=== PATIENT | female | born 1990 ===

== ENCOUNTER 2025-01-17 18:59 | Emergency (ER) | payer SELFPAY ==
[2025-01-17 19:00] VITALS: BP 138/86; PULSE 77; RESP 15; TEMP 36.7; O2SAT 100
--- OUTSIDE RECORDS SUMMARY | 2025-01-17 19:01 | XMS_ITS | Data Portability ---
[facility] Address [address] [place] [address] Assessment No assessment recorded. Plan of Treatment Reminders Order Date Submit Date Provider Last Modified By Organization Details Last Modified Time Details Appointments None recorded. Lab SARS CoV 2 RNA (COVID-19), QL, coal cager-PCR, respiratory specimen - [place] Monday 12:45 [address] [place] [address] (Lab), [address] [place], [address], 0 09:34:02 SARS CoV 2 RNA (COVID-19), QL, coal cager-PCR, respiratory specimen - , SOB,headach es,sorethro at, exposed to pos COVID person. 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 Procedures None recorded. Surgeries None recorded. Imaging None recorded. Medication Orders None recorded. Patient TargetsNo targets recorded. Patient Instructions Encounter Date Encounter Id Patient Instructions Last Modified By Organization Details Last Modified Time 2014 [id number] Administered Tdap vaccine. [email or web address] Not available 2014 18:27:27 01/28/2020 [id number] Reviewed the following recommendations: -Stay home and separate from others as much as possible. -Monitor your symptoms and seek medical attention for trouble breathing, persistent chest pain, confusion, or bluish lips or face. -Wear a mask if you must be around other people. -Wash your hands often for 20 seconds with soap and water and clean high-touch surfaces daily -You may discontinue home isolation if your symptoms are improving, it has been 7 days since symptoms started, and you have been fever free for at least 3 days. [email or web address] Not available 01/28/2020 10:52:29 05/13/2020 [id number] Reviewed the following recommendations: -Stay home and separate from others as much as possible. -Monitor your symptoms and seek medical attention for trouble breathing, persistent chest pain, confusion, or bluish lips or face. -Wear a mask if you must be around other people. -Wash your hands often for 20 seconds with soap and water and clean high-touch surfaces daily -You may discontinue home isolation if your symptoms are improving and it has been 10 days since symptoms started. [email or web address] Not available 05/13/2020 10:33:39 06/25/2020 [id number] things to do if you've been exposed to covid-19 [email or web address] Not available 06/25/2020 10:10:14 Reason for Referral None Reported. Results Created Date Observation Date Name Description Value Unit Range Abnormal Flag Note LastModifiedBy Organization Detail LastModifiedTime 01/28/2001/28/2020 SARS CoV 2 RNA (COVI D-19) , QL, coal cager-P CR, respi rator y speci men sars - cov - 2 PCR NEGATI VE mL Not Available [facility] (Lab) [address] [facility], [place], [address], 02/01/2020 14:03:53 01/28/20 20 01/28/2020 SARS CoV 2 RNA (COVI D-19) , QL, coal cager-P CR, respi rator y speci men covidcom1 This assay is desig emily to detec t the RdRp and N genes of SARS- CoV-2 using nucle ic acid ampli ficat ion. A negat darleen resul t does not precl ude the possi bilit y of 2019- nCoV infec tion since the adequ acy of sampl e colle ction and/o r low viral burde n may resul t in the prese nce of viral nucle ic acids level s below the shiela tical sensi tivit y of this test metho d. Not Available [facility] (Lab) [address] [place], [address], 02/01/2020 14:03:53 01/28/20 20 01/28/2020 SARS CoV 2 RNA (COVI D-19) , QL, coal cager-P CR, respi rator y speci men covidcom2 Posit darleen resul ts are indic ative of the prese nce of SARS- CoV-2 RNA and do not rule out bacte rial infec tion or co-in fecti on with other virus es. Not Available [facility] (Lab) [address] [facility], [place], [address], 02/01/2020 14:03:53 01/28/20 20 01/28/2020 SARS CoV 2 RNA (COVI D-19) , QL, coal cager-P CR, respi rator y speci men covidcom3 Test resul ts shoul d be used along with other clini js obser vatio ns, patie nt histo ry, epide miolo gical infor matio n and labor atory data in makin g the diagn osis. Not Available [facility] (Lab) [address] [facility], [place], [address], 02/01/2020 14:03:53 01/28/20 20 01/28/2020 SARS CoV 2 RNA (COVI D-19) , QL, coal cager-P CR, respi rator y speci men covidcom4 This test has recei [place] FDA Emerg ency Use Autho rizat ion and has been verif ied by [facility] . This test is only autho rized for the durat ion of the decla ratio n and the circu mstan guy that exist to deanna ramirez the autho rizat ion of the emerg ency use of in vitro diagn ostic tests for the detec tion of SARS- CoV-2 virus and/o r diagn osis of COVID -19 infec tion under secti on 564 (b) (1) of the Act. 11 U.S.C . 360bb b-3 (b) (1), unles s the autho rizat ion is termi nated or revok ed soone r. Not Available [facility] (Lab) [address] [place], [address], 02/01/2020 14:03:53 01/28/20 20 01/28/2020 SARS CoV 2 RNA (COVI D-19) , QL, coal cager-P CR, respi rator y speci men covidcom5 [facility] is certi fied under CLIA- 88 as quali fied to perfo rm high compl exity testi ng. This testi ng was [facility]fo [facility]med [facility] [place] [place] [address] (CLIA Licen se #[id number], CAP #[id number], AU-ID #[id number]). Not Available [facility] (Lab) [address] [place], [address], 02/01/2020 14:03:53 01/28/20 20 01/28/2020 SARS CoV 2 RNA (COVI D-19) , QL, coal cager-P CR, respi rator y speci men covidcom6 Facts heet for healt hcare provi ders: https ://ww w.fda .gov/ media /1362 56/do wnloa d Facts heet for patie nts: https ://ww w.fda .gov/ media /1362 57/do wnloa d Not Available [facility] (Lab) [address] [place], [address], 02/01/2020 14:03:53 05/13/20 20 05/13/2020 SARS CoV 2 RNA (COVI D-19) , QL, coal cager-P CR, respi rator y speci men sars - cov - 2 PCR NEGATI VE mL Not Available [facility] (Lab) [address] [place], [address], 05/14/2020 20:26:46 05/13/20 20 05/13/2020 SARS CoV 2 RNA (COVI D-19) , QL, coal cager-P CR, respi rator y speci men covidcom1 COMME NTS: This assay is desig emily to detec t the RdRp and N genes of SARS- CoV-2 using nucle ic acid ampli ficat ion. A negat darleen resul t does not precl ude the possi bilit y of 2019- nCoV infec tion since the adequ acy of sampl e colle ction and/o r low viral burde n may resul t in the prese nce of viral nucle ic acids level s below the shiela tical sensi tivit y of this test metho d. Not Available [facility] (Lab) [address] [facility], [place], [address], 05/14/2020 20:26:46 05/13/20 20 05/13/2020 SARS CoV 2 RNA (COVI D-19) , QL, coal cager-P CR, respi rator y speci men covidcom2 Posit darleen resul ts are indic ative of the prese nce of SARS- CoV-2 RNA and do not rule out bacte rial infec tion or co-in fecti on with other virus es. Not Available [facility] (Lab) [address] [place], [address], 05/14/2020 20:26:46 05/13/20 20 05/13/2020 SARS CoV 2 RNA (COVI D-19) , QL, coal cager-P CR, respi rator y speci men covidcom3 Test resul ts shoul d be used along with other clini js obser vatio ns, patie nt histo ry, epide miolo gical infor matio n and labor atory data in issa dooley the diagn osis. Not Available [facility] (Lab) [address] [place], [address], 05/14/2020 20:26:46 05/13/20 20 05/13/2020 SARS CoV 2 RNA (COVI D-19) , QL, coal cager-P CR, respi rator y speci men covidcom4 This test has recei [place] FDA Emerg ency Use Autho rizat ion and has been verif ied by [facility] . This test is only autho rized for the durat ion of the decla ratio n and the circu mstan guy that exist to justi fy the autho rizat ion of the emerg ency use of in vitro diagn ostic tests for the detec tion of SARS- CoV-2 virus and/o r diagn osis of COVID -19 infec tion under secti on 564 (b) (1) of the Act. 11 U.S.C . 360bb b-3 (b) (1), unles s the autho rizat ion is termi nated or revok ed soone r. Not Available [facility] (Lab) [address] [facility], [place], [address], 05/14/2020 20:26:46 05/13/20 20 05/13/2020 SARS CoV 2 RNA (COVI D-19) , QL, coal cager-P CR, respi rator y speci men covidcom5 [facility] is certi fied under CLIA- 88 as quali fied to perfo rm high compl exity testi ng. This testi ng was perfo rmed in the [facility] [place] [address] (CLIA Licen se #[id number], CAP #[id number], AU-ID #[id number]). Not Available [facility] (Lab) [address] [place], [address], 05/14/2020 20:26:46 05/13/20 20 05/13/2020 SARS CoV 2 RNA (COVI D-19) , QL, coal cager-P CR, respi rator y speci men covidcom6 Facts heet for healt hcare provi ders: https ://ww w.fda .gov/ media /1362 56/do wnloa d Facts heet for patie nts: https ://ww Newsbound.fda .gov/ media /1361 57/do wnloa d Not Available [facility] ([facility]) [address] [place], [address], 05/14/2020 20:26:46 Result Notes None recorded. Problems No Known Problems Medical Equipment None Reported. Allergies No known drug allergies Medications Not known to be on any medication Vitals Date Recorded Oxygen saturation Oxygen saturation in Arterial blood by Pulse oximetry Body weight Heart rate Body mass index (BMI) Body height Body temperature Systolic blood pressure Diastolic blood pressure Provider Name and Address Organization Details Last Updated DateTime 5 99 % 99 % 49892.1 1053 g 82 /min 27.3 kg/m2 167.64 cm 98.2 [degF] 110 mm[Hg] 70 mm[Hg] Mima Keating [facility] 5 18:17:56 Social History Question Answer Notes LastModified by Organizat ion Details LastModified Time Tobacco Smoking Status Never Smoker Mima Keating null, [facility] 2014 18:17:56 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 Mental Status None recorded. Family History Nothing Reported. Medical History No medical history recorded. Gynecological HistoryNo gynecological history recorded. Obstetrics History GPAL:G 0 P 0 0 0 0 Immunizations Vaccine Type Date Status Note Provider Nam e and Address Organization Details Recorded Time Tdap 10/13/2014 completed Not Available [facility] 10/19/2019 02:39:15 Past Encounters Encounter ID Performer Location Encounter Start Date Encounter Closed Date Diagnosis/Indication Diagnosis SNOMED-CT Code Diagnosis ICD10 Code Diagnosis Note [id number] Eun Blanton MD [facility] [address] [place] [address] 2014 18:01:51 10/16/2014 03:50:16 Active or passive immunization [id number] DIDIER Good NP Phong carson [address] [place] [address] 01/28/2020 10:20:56 01/29/2020 08:28:16 Viral syndrome 689953337 B34.9 D/w pt the current pandemic of COVID-19 and call for social isolation in order to blunt the curve and minimize risk and spread. Encouraged patient and family to take restrictio ns seriously. They have verbalized understand ing of such. [id number] DIDIER Good NP Ph[address] [place] [address] 05/13/2020 09:11:56 05/14/2020 11:17:39 Suspected COVID-19 187796196 Z03.818 D/w pt the current pandemic of COVID-19 and call for social isolation in order to blunt the curve and minimize risk and spread. Encouraged patient and family to take restrictio ns seriously. They have verbalized understand ing of such. Viral syndrome 883180017 B34.9 D/w pt the current pandemic of COVID-19 and call for social isolation in order to blunt the curve and minimize risk and spread. Encouraged patient and family to take restrictio ns seriously. They have verbalized understand ing of such. [id number] Kavita Lai, THERMAL MOLDER-CLARIBEL [address]on [address] [place] [address] 06/25/2020 09:11:52 06/26/2020 09:03:17 Exposure to SARS-CoV-2 431937199 Z20.828 Health Concerns Section Related Observation LastModified by Organization Detai ls LastModified Time None Recorded Concern Status LastModified by Organization Details LastModified Time None Recorded Advance Directives Directive None Recorded Payers Encounter Date Sequence Insurance Name Policy Number Policy Del Cid Covered Member ID Del Cid Member ID Guarantor Name 01/28/2020 1 *SELF PAY* Ra oma Schultz 05/13/2020 1 *SELF PAY* Ra oma Schultz 06/25/2020 1 [facility] [id number] [place] Schultz [id number] [place] Schultz Notes Date Note Type Note Provider Name and Address Organization Details Recorded Time 2014 text/html Visit for Tdap. Marty Mera PA-C Attn: Accounting,[address] [place], [address], [facility] 12/16/2014 13:42:53 01/28/2020 text/html COVID ScreeningReported bypatient.Onset/Durati on of fever:fever Associated Symptoms:cough;shortne ss of breath(one week ago); no cough Context/Exposure:no travelCOVID-19 SymptomsReported bypatient.COVID-19 Signs and Symptomscough same Contacts and Exposureclose contact with a confirmed or suspected case of COVID-19; healthcare-associated exposure; patient is healthcare personnel Onset/Timing:date of symptoms onset: (one week ago) Associated Symptoms:fatigue;fever ;sore throat;vomiting;nausea 29 yo female ,spoke via phone with C/O sorethroat X one week, vomiting, chillis X last night, headache X three days , healthcare worker DIDIER Good NP Attn: Accounting,[address] [place], [address], [facility] 01/28/2020 10:52:55 05/13/2020 text/html COVID ScreeningReported bypatient.Onset/Durati on of fever:no fever Associated Symptoms:shortness of breath; no cough; no shortness of breathCOVID-19 Symptoms January 2020Reported bypatient.COVID-19 Signs and Symptomsshortness of breath same; headache same; sore throat same Contacts and Exposureclose contact with a confirmed or suspected case of COVID-19 29 yo female ,spoke via phone with C/O , SOB,headaches,sorethro at, exposed to pos COVID person. DIDIER Good NP Attn: Accounting,[address] [place], [address], [facility] 05/13/2020 10:34:10 06/25/2020 text/html COVID-19 Symptom s January 2020Reported bypatient.Contacts and Exposureclose contact with a confirmed or suspected case of COVID-19; close proximity with person with COVID-19 ASHLEY Leon Attn: Accounting[address] [place], [address], [facility] 06/25/2020 10:11:05 OBGyn Episode No OBEpisode recorded.
--- NOTE | 2025-01-17 19:20 | PC.NURSE ---
this RN assists pt to get into psych scrubs and asks patient to put belongings into a belonging bag. pt refuses and before this RN could explain why, patient begins going toward ER front door to leave. this RN immediately asks furnace and wash equipment operator to call security and Roger KELLEY because patient reports SI. at this time pt is with security and PD in ED parking lot.
[2025-01-17 20:04] LABS: BEDSIDEPREGUCG Negative (Negative)
[2025-01-17 20:05] LABS: Basophils Absolute Auto 0.1 K/mm3 (0.0-0.1); Basophils Percent Auto 0.8 % (0.2-1.2); Eosinophils Absolute Auto 0.1 K/mm3 (0-0.3); Eosinophils Percent Auto 1.2 % (0-4.4); Hematocrit 42.6 % (37.0-47.0); Immature Granulocyte Absolute 0.02 K/mm3 (0.00-0.031); Immature Granulocyte Percent A 0.3 % (0-0.5); Lymphocytes Absolute Auto 2.88 K/mm3 (0.9-3.2); Lymphocytes Percent Auto 36.8 % (18.3-44.2); Mean Corpuscular HGB Conc 32.9 g/dl (32-36); Mean Corpuscular Hemoglobin 28.3 pg (26-34); Mean Corpuscular Volume 86.2 fl (80-100); Mean Platelet Volume 10.3 fl (7.4-10.4); Monocytes Absolute Auto 0.4 K/mm3 (0.1-0.6); Monocytes Percent Auto 5.2 % (2.6-8.5); Neutrophils Absolute Auto 4.4 K/mm3 (1.3-6.7); Neutrophils Percent Auto 55.7 % (45.5-73.1); Platelet Count Result 247 k/mm3 (150-375); Red Blood Count 4.94 M/mm3 (4.2-5.4); Red Cell Distribution Width 13.2 % (11.5-14.5); White Blood Count 7.8 K/mm3 (4.5-10.0)
[2025-01-17 20:11] LABS: Add Urine Microscopic? YES; Appearance Urine Clear (Clear); Bacteria Urine 3+ /hpf; Bilirubin Urine Negative (Negative); Blood Urine Negative (Negative); Color Urine Yellow (Yellow); Glucose Urine UA Negative (Negative); Ketones Urine Negative (Negative); Leukocyte Esterase Ur Negative LEU/UL (Negative); Nitrate Urine Positive (Negative); Non Pathogenic Casts 0-2; Protein Urine Negative (Negative); Specific Grav Ur 1.018 (1.001-1.035); Squamous Epithelial Cell Urine Few /hpf (Few); Urobilinogen Urine 0.2 mg/dL (<2.0); WBC Urine 0-5 /hpf (0-3); pH Urine 5.5 (5.0-9.0)
--- NOTE | 2025-01-17 20:11 | ED_ITS ---
HPI - General Adult General Chief complaint: Psychiatric Symptoms Stated complaint: SI Time Seen by Provider: 01/17/25 19:13 History of Present Illness HPI narrative: Patient is a 34-year-old female who presents the emergency department this evening for evaluation for suicidal ideations. Patient is brought in by PD who states that she has a told the multiple times that she wanted to kill herself. Patient herself admits that she may have made some statements but is adamant that she never intended to hurt herself and has never attempted to do such thing in the past. Denies any active suicidal or homicidal ideations. Patient states that the PD came in and immediately found an empty bottle of lamotrigine which is 1 of the medications she takes and she ran out of. They are medically started to assume things such as her taking her medications to overdose when she didn't even have medications to overdose on. Patient states that this upset her. Patient states that she has been struggling with depression and does see psychiatrist. Has good resources. Patient is, cooperative during my assessment, his not appear to be under the influence of any drugs or alcohol and no evidence of acute psychosis. Related Data Allergies Allergy/AdvReac Type Severity Reaction Status Date / Time No Known Allergies Allergy Verified 01/17/25 19:07 Review of Systems 2 Review of Systems: All systems are reviewed and are negative unless stated otherwise in the HPI. Exam 2 Narrative: General: Alert, awake, afebrile, in no acute distress. HEENT: PERRL, no rhinorrhea, no post nasal drip, oropharynx clear. Neck: Trachea midline, no JVD, no lymphadenopathy. Cardiovascular: Regular rate and rhythm, no murmurs, rubs or gallops, no peripheral edema. Respiratory: Clear to auscultation bilaterally, no tachypnea, no wheezing, no rhonchi, no rubs, no respiratory distress. Abdomen: Soft, nontender, nondistended, no rebound, no guarding, no peritoneal signs. Musculoskeletal: No joint swelling or deformity, normal muscle tone. Skin: No rashes or petechia, no signs of infection. Psychiatric: Alert and oriented, normal behavior and judgment for situation, c jose, cooperative, non combative. Neurological: Alert and oriented to person, place, and time. Follows all commands. No focal deficits, speech is clear and fluent. Course Vital Signs Vital signs: Vital Signs Temperature 98.0 F 01/17/25 19:00 Pulse Rate 77 01/17/25 19:00 Respiratory Rate 15 01/17/25 19:00 Blood Pressure 138/86 01/17/25 19:00 Pulse Oximetry 100 01/17/25 19:00 Oxygen Delivery Room Air 01/17/25 19:00 Temperature 98.0 F 01/17/25 19:00 Pulse Rate 77 01/17/25 19:00 Respiratory Rate 15 01/17/25 19:00 Blood Pressure 138/86 01/17/25 19:00 Pulse Oximetry 100 01/17/25 19:00 Oxygen Delivery Room Air 01/17/25 19:00 Medical Decision Making MDM Narrative Medical decision making narrative: The patient was evaluated by myself in the emergency department. History is obtained from patient who is an independent historian and physical exam was performed. External medical records were reviewed at this time. IV was established and pertinent tests were ordered. Laboratory results obtained revealing mild transaminitis with an AST of 42 and ALT of 84 otherwise unremarkable. Urinalysis revealed urinary tract infection. Urine drug screen negative. Differential diagnosis considerations include acute psychosis, depression, anxiety. Comorbidities impacting this visit include none. I have evaluated and discussed social determinants of health with the patient that could potentially impact subsequent diagnosis and treatment plans. Patient was seen and evaluated by our crisis team who believe the patient is not actively suicidal or homicidal, patient has a good support system and was very reasonable with them during her assessment. They do not feel any need to involuntary hospitalized for which I am in agreement with. On repeat assessment of the patient, reevaluation revealed that the patient is doing well and is in no acute distress. Patient symptoms have improved since she arrived to our emergency department. Repeat vital signs were all reviewed and noted to be stable. Differential diagnosis and treatment plan were discussed with the patient at bedside. Patient agrees with discussion and after shared medical decision making agrees with discharge. All questions were answered to the patient's satisfaction. Patient will follow up with her therapist/psychiatrist in 3-5 days. Script for cephalexin was sent to patient's pharmacy to take as prescribed for her urinary tract infection. Patient was provided with strict return precautions and instructed to return to the emergency department if any new or worsening symptoms develop. The patient was discharged in stable condition. Vital Signs Vital Signs: Vital Signs Temperature 98.0 F 01/17/25 19:00 Pulse Rate 77 01/17/25 19:00 Respiratory Rate 15 01/17/25 19:00 Blood Pressure 138/86 01/17/25 19:00 Pulse Oximetry 100 01/17/25 19:00 Oxygen Delivery Room Air 01/17/25 19:00 Temperature 98.0 F 01/17/25 19:00 Pulse Rate 77 01/17/25 19:00 Respiratory Rate 15 01/17/25 19:00 Blood Pressure 138/86 01/17/25 19:00 Pulse Oximetry 100 01/17/25 19:00 Oxygen Delivery Room Air 01/17/25 19:00 Lab Data 01/17/25 19:57 01/17/25 19:57 Labs: Lab Results 01/17/25 01/17/25 Range/Units 19:57 20:02 WBC 7.8 (4.5-10.0) K/mm3 RBC 4.94 (4.2-5.4) M/mm3 Hgb 14.0 (12.0-15.0) g/dL Hct 42.6 (37.0-47.0) % MCV 86.2 (80-100) fl MCH 28.3 (26-34) pg MCHC 32.9 (32-36) g/dl RDW 13.2 (11.5-14.5) % Plt Count 247 (150-375) k/mm3 MPV 10.3 (7.4-10.4) fl Immature Gran % (Auto) 0.3 (0-0.5) % Neut % (Auto) 55.7 (45.5-73.1) % Lymph % (Auto) 36.8 (18.3-44.2) % [place] % (Auto) 5.2 (2.6-8.5) % Eos % (Auto) 1.2 (0-4.4) % Baso % (Auto) 0.8 (0.2-1.2) % Lymph # (Auto) 2.88 (0.9-3.2) K/mm3 [place] # (Auto) 0.4 (0.1-0.6) K/mm3 Eos # (Auto) 0.1 (0-0.3) K/mm3 Baso # (Auto) 0.1 (0.0-0.1) K/mm3 Abs Immat Gran (auto) 0.02 (0.00-0.031) K/mm3 Absolute Neuts (auto) 4.4 (1.3-6.7) K/mm3 Absolute Nucleated RBC 0.000 (0.0-0.012) K/mm3 Nucleated RBC % 0.0 (0.0-0.2) % Sodium 138 (137-145) mmol/L Potassium 3.9 (3.4-5.0) mmol/L Chloride 103 (98-107) mmol/L Carbon Dioxide 19 L (22-30) mmol/L Anion Gap 16 H (4-12) mmol/L BUN 8 (7-17) mg/dL Creatinine 0.76 (0.7-1.0) mg/dL Estim Creat Clear Calc 107 ml/min Estimated GFR > 60 (59 - ) Glucose 102 (65-110) mg/dL Calcium 9.9 (8.4-10.2) mg/dL Total Bilirubin 0.6 (0.2-1.3) mg/dL AST 42 H (14-36) U/L ALT 84 H (6-35) U/L Alkaline Phosphatase 70 (38-126) U/L Total Protein 8.0 (6.3-8.2) g/dL Albumin 5.0 (3.5-5.1) g/dL Serum HCG, Qual Negative Urine Color Yellow (Yellow) Urine Appearance Clear (Clear) Urine pH 5.5 (5.0-9.0) Ur Specific [place] 1.018 (1.001-1.035) Urine Protein Negative (Negative) mg/dL Urine Glucose (UA) Negative (Negative) mg/dL Urine Ketones Negative (Negative) mg/dL Ur Blood (Man) Negative (Negative) Urine Nitrate Positive H (Negative) Urine Bilirubin Negative (Negative) Urine Urobilinogen 0.2 (<2.0) mg/dL Leukocyte Esterase Rfl Negative (Negative) PREMA/UL Urine RBC 3-5 H (0-2) /hpf Urine WBC 0-5 (0-3) /hpf Ur Squamous Epith Cells Few (Few) /hpf Urine Bacteria 3+ H /hpf Urine Casts 0-2 POC Urine HCG, Qual Negative (Negative) Salicylates < 1.0 L (2-20) mg/dL Urine Opiates Screen Negative (Negative) Urine Methadone Screen Negative (Negative) Acetaminophen < 10 L (10-30) ug/mL Ur Barbiturates Screen Negative (Negative) Ur Phencyclidine Scrn Negative (Negative) Ur Amphetamine Screen Negative (Negative) U Benzodiazepines Scrn Negative (Negative) Urine Cocaine Screen Negative (Negative) U Cannabinoids Screen Negative (Negative) Ethyl Alcohol < 10 (<10) mg/dL Influenza A (RT-PCR) Negative (Negative) Influenza B (RT-PCR) Negative (Negative) RSV (RT-PCR) Negative (Negative) SARS-CoV-2 RNA (RT-PCR) Negative (Negative) Discharge Plan Discharge Clinical Impression: Depression, Anxiety, UTI (urinary tract infection) Patient Disposition: Home Condition: Improved Instructions: Antibiotic Form, Urinary Tract Infection in Women (DC), Depression (ED), Generalized Anxiety Disorder (ED) Additional Instructions: Please follow-up with your family doctor/psychiatrist/therapist within the next 3-5 days. Use resources provided to you by our crisis team. Return to the emergency department if any new or worsening symptoms develop. Take the prescribed antibiotic as instructed for urinary tract infection. Patient Language: Ukrainian Prescriptions: New cephalexin 500 mg capsule 500 mg PO Q12H 5 Days Qty: 10 0RF Follow-up/Referrals: PHYSICIAN NOT ON STAFF,NONSTAFF [Primary Care Provider] - 3 Days Time of Disposition: 22:36
[2025-01-17 20:14] LABS: Alanine Aminotransferase 84 U/L (6-35); Alkaline Phosphatase 70 U/L (38-126); Anion Gap 16 mmol/L (4-12); Aspartate Amino Transferase 42 U/L (14-36); Bilirubin,Total 0.6 mg/dL (0.2-1.3); Blood Urea Nitrogen 8 mg/dL (7-17); Calcium 9.9 mg/dL (8.4-10.2); Carbon Dioxide 19 mmol/L (22-30); Chloride 103 mmol/L (98-107); Estimated CRCL calculation 107 ml/min; Estimated Glomerular Filt Rate > 60; Glucose 102 mg/dL (65-110); Potassium 3.9 mmol/L (3.4-5.0); Sodium 138 mmol/L (137-145)
[2025-01-17 20:15] LABS: Acetaminophen < 10 ug/mL (10-30); Ethanol < 10 mg/dL (<10); SPREG INTERNAL CONTROL Positive; Salicylate < 1.0 mg/dL (2-20); Serum Qual hCG Negative
[2025-01-17 20:23] LABS: Amphetamine Screen Urine Negative (Negative); Barbiturate Screen Urine Negative (Negative); Benzodiazepines Screen Urine Negative (Negative); Cannabinoid Screen Urine Negative (Negative); Cocaine Screen Urine Negative (Negative); Methadone Screen Urine Negative (Negative); Opiate Screen Urine Negative (Negative); Phencyclidine Screen Urine Negative (Negative)
[2025-01-17 20:41] LABS: Influenza A QL RT-PCR Negative (Negative); Influenza B QL RT-PCR Negative (Negative); RSV RNA, RT-PCR Negative (Negative); SARS-CoV-2 RNA PCR Negative (Negative)
== END 2025-01-17 23:24 | disposition home or self-care (01) ==
PROVIDERS: Emergency Provider Emergency Medicine
DX: F32.A Depression, unspecified (principal); F41.9 Anxiety disorder, unspecified; N39.0 Urinary tract infection, site not specified; Z11.52 Encounter for screening for COVID-19
CPT/HCPCS: 36415; 80053; 80143; 80179; 80307; 81001; 81025; 82077; 84703; 85025; 87086; 87186; 87637; 99284